=== PATIENT | female | born 1950 | race Two or more races ===

== ENCOUNTER 2021-06-20 20:16 | Emergency (ER) | payer MEDICAID, BC ==
[~2021-06-20] VITALS: Ht 160 cm; Wt 87.1 kg
[2021-06-20 20:51] VITALS: BP_SYST 112
[2021-06-20] MEDS ORDERED: KETOROLAC TROMETHAMINE 60 MG/2 ML VIAL IM ONE (22:30)
[2021-06-20] MEDS ORDERED: HYDR-3917 PO (22:42)
[2021-06-20] MEDS ORDERED: IBUP-1971 PO (22:42)
[2021-06-21 01:26] VITALS: BP_SYST 112
== END 2021-06-21 01:26 | disposition home or self-care (01) ==
LOC: SED 20:16
DX: M25.561 Pain in right knee (principal); J45.909 Unspecified asthma, uncomplicated; E11.9 Type 2 diabetes mellitus without complications
CPT/HCPCS: 96372; 99283; J1885

== ENCOUNTER 2021-11-17 06:35 | Day surgery (SDC) | payer OTHER, MEDICAID ==
[~2021-11-17] VITALS: Ht 160 cm; Wt 86.2 kg
[~2021-11-17 06:35] MED LIST: HYDR-3917 PO; IBUP-1971 PO
[2021-11-17] MEDS ORDERED: GLYCOPYRROLATE 0.2 MG/ML VIAL ONE (07:42)
[2021-11-17] MEDS: MEPERIDINE 100 MG INJ. 100 MG/ML VIAL ONE ×2 (10:06→10:09)
[2021-11-17] MEDS: MIDAZOLAM HCL 5 MG/5 ML VIAL ONE ×4 (10:06→10:14)
[2021-11-17 12:49] VITALS: BP_SYST 96
== END 2021-11-17 11:28 | disposition home or self-care (01) ==
LOC: SDS 06:35 → SMU 06:36 → SDS 11:28
PROVIDERS: ATTEND Colon & Rectal Surgery
DX: Z12.11 Encounter for screening for malignant neoplasm of colon (principal); K57.30 Diverticulosis of large intestine without perforation or abscess without bleeding; K62.89 Other specified diseases of anus and rectum; K64.8 Other hemorrhoids; E11.42 Type 2 diabetes mellitus with diabetic polyneuropathy; J45.909 Unspecified asthma, uncomplicated; E78.5 Hyperlipidemia, unspecified; Z85.048 Personal history of other malignant neoplasm of rectum, rectosigmoid junction, and anus; Z90.710 Acquired absence of both cervix and uterus; Z20.822 Contact with and (suspected) exposure to COVID-19; Z79.899 Other long term (current) drug therapy
CPT/HCPCS: 36415 ×2; 45378; 87426; 99152; G0378; J2175; J2250; U0003; J3490

== ENCOUNTER 2022-08-12 20:34 | Emergency (ER) | payer OTHER, MEDICAID ==
[~2022-08-12] VITALS: Ht 160 cm; Wt 90.7 kg
[2022-08-12 21:18] VITALS: BP_SYST 133
--- NOTE | 2022-08-12 21:30 | NUR ---
Pt placed to ER waiting room in stable condition. JENNIFER.
--- NOTE | 2022-08-12 21:50 | NUR ---
pt in bed. c/o rectal pain. pt a/o x 4
[2022-08-12 23:08] LABS: ANION GAP 8 (5-15); CALCIUM 9.1 mg/dL (8.4-11.0); CHLORIDE 105 mmol/L (98-107); GLUCOSE 110 mg/dL (70-99); UREA NITROGEN, BLOOD 15 mg/dL (8-21)
[2022-08-12 23:14] LABS: BASOPHILS % (AUTO) 0.5 % (0.0-2.0); EOSINOPHILS # (AUTO) 0.1 K/uL (0.0-0.4); EOSINOPHILS % (AUTO) 0.9 % (0.0-4.0); HEMATOCRIT 41.9 % (36-48); HEMOGLOBIN 13.9 g/dL (12.0-16.0); LYMPHOCYTES # (AUTO) 2.8 K/uL (1.0-5.5); MEAN CORPUSCULAR HEMOGLOBIN 30 pg (27-31); MEAN CORPUSCULAR HGB CONC 33 % (32-36); MEAN CORPUSCULAR VOLUME 92 fL (79.0-98.0); MONOCYTES # (AUTO) 0.7 K/uL (0.0-1.0); MONOCYTES % (AUTO) 9.2 % (1.7-9.3); NEUTROPHILS # (AUTO) 4.1 K/uL (1.8-7.7); NEUTROPHILS % (AUTO) 53.4 % (40.0-70.0); PLATELET COUNT (AUTO) 267 K/uL (130-430); RED BLOOD CELL COUNT(AUTO) 4.57 MIL/uL (4.2-6.2); RED CELL DISTRIBUTION WIDTH 13.7 % (9.0-15.0); WHITE BLOOD COUNT (AUTO) 7.7 K/uL (4.8-10.8)
[2022-08-12 23:15] LABS: ALANINE AMINOTRANSFERASE 25 U/L (12-78); ALBUMIN 3.6 g/dL (3.4-4.8); ASPARTATE AMINOTRANSFERASE 21 U/L (10-37); TOTAL BILIRUBIN 0.3 mg/dL (0.0-1.0)
[2022-08-13] MEDS ORDERED: POLY119P2 PO (00:40)
[2022-08-13] MEDS ORDERED: ANURH RC (00:40)
== END 2022-08-13 01:00 | disposition home or self-care (01) ==
LOC: SED 20:34
DX: K62.5 Hemorrhage of anus and rectum (principal); K59.00 Constipation, unspecified; J45.909 Unspecified asthma, uncomplicated; E11.9 Type 2 diabetes mellitus without complications; Z79.899 Other long term (current) drug therapy
CPT/HCPCS: 36415; 76376; 80053; 85025; 99284

== ENCOUNTER 2023-01-04 07:43 | Emergency (ER) | payer BC, MEDICAID ==
[~2023-01-04] VITALS: Ht 160 cm; Wt 83.9 kg
[~2023-01-04 07:43] MED LIST changes: +ANURH RC; +POLY119P2 PO
[2023-01-04 07:47] VITALS: BP_SYST 110; PULSE 90; RESP 18; TEMP 97.3; O2SAT 98
[2023-01-04 08:34] LABS: BASOPHILS % (AUTO) 0.3 % (0.0-2.0); LYMPHOCYTES # (AUTO) 1.4 K/uL (1.0-5.5); MONOCYTES # (AUTO) 0.7 K/uL (0.0-1.0); NEUTROPHILS # (AUTO) 11.5 K/uL (1.8-7.7); WHITE BLOOD COUNT (AUTO) 13.7 K/uL (4.8-10.8)
[2023-01-04 08:39] LABS: ANION GAP 14 (5-15); CARBON DIOXIDE 22 mmol/L (23-29); CHLORIDE 99 mmol/L (98-107); CREATININE 0.75 mg/dL (0.55-1.30); GLUCOSE 126 mg/dL (74-106); POTASSIUM 4.4 mmol/L (3.5-5.1); SODIUM SERUM 135 mmol/L (136-145); UREA NITROGEN, BLOOD 9 mg/dL (8-21)
[2023-01-04 08:40] LABS: EOSINOPHILS % (AUTO) 0.2 % (0.0-4.0); HEMATOCRIT 46.9 % (36-48); HEMOGLOBIN 15.7 g/dL (12.0-16.0); MEAN CORPUSCULAR HEMOGLOBIN 31 pg (27-31); MEAN CORPUSCULAR HGB CONC 33 % (32-36); MEAN CORPUSCULAR VOLUME 91 fL (79.0-98.0); MONOCYTES % (AUTO) 5.3 % (1.7-9.3); NEUTROPHILS % (AUTO) 84.2 % (40.0-70.0); PLATELET COUNT (AUTO) 232 K/uL (130-430); RED BLOOD CELL COUNT(AUTO) 5.14 MIL/uL (4.2-6.2); RED CELL DISTRIBUTION WIDTH 13.9 % (9.0-15.0)
[2023-01-04 08:46] LABS: ALANINE AMINOTRANSFERASE 52 U/L (12-78); ALBUMIN 3.8 g/dL (3.4-4.8); ASPARTATE AMINOTRANSFERASE 58 U/L (10-37); TOTAL BILIRUBIN 1.3 mg/dL (0.0-1.0); TOTAL PROTEIN, SERUM 7.8 g/dL (6.4-8.3)
[2023-01-04] MEDS ORDERED: HYDROcodone/ACETAMIN 10-325 MG TAB PO ONE (10:00)
[2023-01-04 11:06] VITALS: BP_SYST 144; PULSE 82; RESP 16; TEMP 98.2; O2SAT 97
== END 2023-01-04 11:03 | disposition home or self-care (01) ==
LOC: SED 07:43
DX: F41.9 Anxiety disorder, unspecified (principal); R07.89 Other chest pain; J45.909 Unspecified asthma, uncomplicated; E11.9 Type 2 diabetes mellitus without complications; Z79.899 Other long term (current) drug therapy
CPT/HCPCS: 36415; 71045; 80053; 84484; 85025; 93005; 99285